=== PATIENT | female | born 1965 | race African-American/Black ===

== ENCOUNTER 2017-09-11 20:12 | Observation (INO) | payer SELFPAY ==
[2017-09-11 17:40] VITALS: O2SAT 98
[~2017-09-11 20:12] MED LIST: ACETAMINOPHEN 325 MG TAB PO PRN; AMLO5TAB2 PO; ASPI-516 CHEW; ATOR40TA16 PO; BENZ100 PO; BIOTCAP PO; BISACODYL 10 MG SUPP RECTAL PRN; CLOP75TA PO; FAMO20TA2 PO; FENO1TAB46 PO; FERR325T18 PO; FISHCAP4 PO; GABA100C4 PO; HYZA100T6 PO; ISOS60TA PO; LACTULOSE SYRUP 20 GM/30 ML CUP PO PRN; LIPI20TA PO; LOSA25TA PO; MAGN250T11 PO; MEDR4PAK PO; METF1000 PO; METF500T PO; METO25TA3 PO; METO50TA PO; NALOXONE HCL 0.4 MG/ML AMP IV PUSH PRN; ONDANSETRON HCL 4 MG/2 ML VIAL IVP PRN; PLAV75TA29 PO; SODIUM CHLORIDE 0.9% FLUSH 10 ML FLUSH IV FLUSH PRN; VENTAER INH
[2017-09-11 20:35] VITALS: O2SAT 98
[2017-09-11] MEDS ORDERED: TEMAZEPAM 15 MG CAP PO PRN (21:00)
[2017-09-11] MEDS ORDERED: MAGNESIUM HYDROXIDE SUSP 30 ML CUP PO PRN (21:00)
[2017-09-11] MEDS ORDERED: SENNOSIDES 8.6 MG TAB PO PRN (21:00)
[2017-09-11 21:15] VITALS: PULSE 87
[2017-09-11 21:31] VITALS: BP 127/62; PULSE 86; RESP 18; TEMP 97.9; O2SAT 96
[2017-09-11] MEDS: SODIUM CHLORIDE 0.9% FLUSH 10 ML FLUSH IV FLUSH SCH (21:59)
[2017-09-11] MEDS: ENOXAPARIN SODIUM 40 MG/0.4 ML SYRINGE SQ SCH (22:00)
[2017-09-11] MEDS: GABAPENTIN 100 MG CAP PO SCH (22:01)
[2017-09-11] MEDS: METOPROLOL TARTRATE 25 MG TAB PO SCH (22:01)
[2017-09-11] MEDS: FAMOTIDINE 20 MG TAB PO SCH (22:01)
[2017-09-11] MEDS: ATORVASTATIN 40 MG TAB PO SCH (22:01)
[2017-09-11] MEDS: DOCUSATE SODIUM 50 MG/SENNA 8.6 MG TAB PO SCH (22:02)
[2017-09-12] VITALS (8 sets, daily range): BP systolic 99–175; BP diastolic 57–90; PULSE 72–88; RESP 18–20; TEMP 97.5–98.9; O2SAT 94–98
[2017-09-12] MEDS: LOSARTAN 50 MG TAB PO SCH (08:42)
[2017-09-12] MEDS: HYDROCHLOROTHIAZIDE 25 MG TAB PO SCH (08:42)
[2017-09-12] MEDS: METOPROLOL TARTRATE 25 MG TAB PO SCH ×2 (08:42→21:03)
[2017-09-12] MEDS: FAMOTIDINE 20 MG TAB PO SCH ×2 (08:42→21:00)
[2017-09-12] MEDS: FERROUS SULFATE 325 MG (65 MG ELEMENTAL IRON) TAB PO SCH (08:43)
[2017-09-12] MEDS: GABAPENTIN 100 MG CAP PO SCH ×2 (08:43→21:03)
[2017-09-12] MEDS: FENOFIBRATE 48 MG TAB PO SCH (08:43)
[2017-09-12] MEDS: CLOPIDOGREL 75 MG TAB PO SCH (08:43)
[2017-09-12] MEDS: SODIUM CHLORIDE 0.9% FLUSH 10 ML FLUSH IV FLUSH SCH ×2 (08:43→21:03)
[2017-09-12] MEDS: ASPIRIN 81 MG CHEW TAB CHEW SCH (08:43)
[2017-09-12] MEDS: amLODIPine BESYLATE 5 MG TAB PO SCH (08:43)
[2017-09-12] MEDS: DOCUSATE SODIUM 50 MG/SENNA 8.6 MG TAB PO SCH ×2 (08:45→21:00)
[2017-09-12 08:47] LABS: AUTOMATED NEUTROPHIL # 6.3 TH/MM3 (1.8-7.7); BASOPHIL # 0.1 TH/MM3 (0-0.2); BASOPHIL % 0.7 % (0.0-2.0); EOSINOPHIL # 0.2 TH/MM3 (0-0.4); EOSINOPHIL % 2.1 % (0.0-4.0); HEMATOCRIT 38.3 % (35.0-46.0); HEMOGLOBIN 12.6 GM/DL (11.6-15.3); LYMPH % 23.7 % (9.0-44.0); LYMPHOCYTE # 2.3 TH/MM3 (1.0-4.8); MEAN CELL VOLUME 86.4 FL (80.0-100.0); MEAN CORPUSCULAR HEMOGLOBIN 28.4 PG (27.0-34.0); MEAN CORPUSCULAR HGB CONC 32.8 % (32.0-36.0); MEAN PLATELET VOLUME 10.1 FL (7.0-11.0); MONO % 7.4 % (0.0-8.0); MONOCYTE # 0.7 TH/MM3 (0-0.9); NEUT % 66.1 % (16.0-70.0); PLATELET COUNT 284 TH/MM3 (150-450); RED BLOOD COUNT 4.43 MIL/MM3 (4.00-5.30); RED CELL DISTRIBUTION WIDTH 15.6 % (11.6-17.2); WHITE BLOOD COUNT 9.6 TH/MM3 (4.0-11.0)
[2017-09-12 08:52] LABS: CALCIUM 8.5 MG/DL (8.5-10.1)
[2017-09-12 08:53] LABS: BICARBONATE 29.1 MEQ/L (21.0-32.0)
[2017-09-12 08:56] LABS: CREATININE 0.88 MG/DL (0.50-1.00)
[2017-09-12] MEDS ORDERED: NON-FORMULARY DRUG (Magnesium Oxide 250 MG) PO SCH (09:00)
--- NOTE | 2017-09-12 11:12 | HHI.HP ---
[facility] Service [facility] ([place], [place])ists Primary Care Physician Non-Staff Admission Diagnosis Hypertension Diagnoses: (1) Hypertension Diagnosis: Principal (2) TIA (transient ischemic attack) Diagnosis: Secondary (3) Hypokalemia Diagnosis: Secondary Chief Complaint: Headache and dizziness Travel History International Travel<30 Days: No Contact w/Intl Traveler <30 Da: No History of Present Illness Written by Leidy Cummings, acting as scribe for Dr. Loving on 09/12/17 at 11:08. Ms. Parekh is a 52-year-old female patient with a known medical history of multiple TIAs, DM, CAD and HTN who presented to the ED with complaints of frontal headache and dizziness. Patient states she came to the ED initially for similar complaints and at the time was hypertensive, was given antihypertensives and CT scan which was negative and sent home. Patient states that she felt somewhat improved with the treatment but has continued as well as a worsening headache yesterday morning wish associated blurry vision. Patient states that her symptoms persisted thinking maybe she was coming down with a sickness from contact with sick family members. Does admit to taking OTC Cepacol for cough.She went to her PCP was diagnosed with bronchitis and given steroids, inhaler and antibiotics. While at the office she developed a worsening headache and her BP was in the 225's which led to her presentation. Patient states that her BP is always controlled at home. Does admit to multiple previous TIAs and CVA 5 years ago. 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 At the time of assessment, headache has resolved. Denies any pain or discomfort. Denies any fever, chills, headache, shortness of breath, abdominal pain, nausea, vomiting, diarrhea or dysuria. Has not seen a neurologist for many years, last one she saw was Dr. Johnson. Review of Systems Constitutional: DENIES: Fever, Chills Eyes: COMPLAINS OF: Blurred vision, DENIES: Diplopia, Eye pain Respiratory: DENIES: Cough, Sputum production, Shortness of breath Cardiovascular: DENIES: Chest pain Gastrointestinal: DENIES: Abdominal pain, Nausea, Vomiting Musculoskeletal: DENIES: Joint pain Hematologic/lymphatic: DENIES: Bruising Neurologic: COMPLAINS OF: Headache Psychiatric: DENIES: Anxiety Except as stated in HPI: all other systems reviewed are Neg Past Family Social History Past Medical History History of multiple TIAs, DM, CAD, hyperlipidemia and HTN Past Surgical History Tubal ligation. Reported Medications Active Reported Fish Oil + D3 (Fish Oil-Cholecalciferol) 1,200-1,000 Mg-Unit Cap 1 Cap PO DAILY Ferrous Sulfate 325 Mg (65 Mg Iron) Tablet 325 Mg PO DAILY Biotin 5 Mg Cap 5 Mg PO DAILY Magnesium Oxide 250 Mg Tab 250 Mg PO DAILY Fenofibrate 40 Mg Tab 40 Mg PO DAILY Plavix (Clopidogrel Bisulfate) 75 Mg Tab 75 Mg PO DAILY Aspirin 81 Mg Chew 81 Mg CHEW DAILY Famotidine 20 Mg Tab 20 Mg PO BID Metformin (Metformin HCl) 1,000 Mg Tab 1,000 Mg PO BIDPC Metoprolol Tartrate 25 Mg Tab 25 Mg PO BID Amlodipine (Amlodipine Besylate) 5 Mg Tab 5 Mg PO DAILY Hyzaar (Losartan-Hydrochlorothiazide) 100-25 Mg Tab 1 Tab PO DAILY Atorvastatin (Atorvastatin Calcium) 40 Mg Tab 40 Mg PO HS Gabapentin 100 Mg Cap 100 Mg PO BID Allergies: Coded Allergies: No Known Allergies (Verified Adverse Reaction, Unknown, 09/11/17) Active Ordered Medications Current Medications Medications (Trade) Dose Ordered Sig/Danielle Route Start Time Stop Time Status Last Admin (NS Flush) 2 ml UNSCH PRN IV FLUSH 09/11/17 17:45 (NS Flush) 2 ml BID IV FLUSH 09/11/17 21:00 09/12/17 08:43 (Tylenol) 650 mg Q4HR PRN PO 09/11/17 20:00 (Zofran Inj) 4 mg Q6HR PRN IVP 09/11/17 18:00 (Restoril) 15 mg HS PRN PO 09/11/17 21:00 (Lovenox Inj) 40 mg Q24H SQ 09/11/17 21:00 09/11/17 22:00 (Narcan Inj) 0.4 mg UNSCH PRN IV PUSH 09/11/17 17:45 (Angela-Colace) 1 tab BID PO 09/11/17 21:00 09/11/17 22:02 (Milk Of Magnesia Liq) 30 ml Q12HR PRN PO 09/11/17 21:00 (Senokot) 17.2 mg Q12HR PRN PO 09/11/17 21:00 (Dulcolax Supp) 10 mg DAILY PRN RECTAL 09/11/17 18:00 (Lactulose Liq) 30 ml DAILY PRN PO 09/11/17 18:00 (Norvasc) 5 mg DAILY PO 09/12/17 09:00 09/12/17 08:43 (Aspirin Chew) 81 mg DAILY CHEW 09/12/17 09:00 09/12/17 08:43 (Lipitor) 40 mg HS PO 09/11/17 21:00 09/11/17 22:01 (Plavix) 75 mg DAILY PO 09/12/17 09:00 09/12/17 08:43 (Pepcid) 20 mg BID PO 09/11/17 21:00 09/12/17 08:42 (Ferrous Sulfate) 325 mg DAILY PO 09/12/17 09:00 09/12/17 08:43 (Neurontin) 100 mg BID PO 09/11/17 21:00 09/12/17 08:43 (Lopressor) 25 mg BID PO 09/11/17 21:00 09/12/17 08:42 (Tricor) 48 mg DAILY PO 09/12/17 09:00 09/12/17 08:43 (Cozaar) 100 mg DAILY PO 09/12/17 09:00 09/12/17 08:42 (Hydrodiuril) 25 mg DAILY PO 09/12/17 09:00 09/12/17 08:42 Family History Family medical history significant for hypertension and DM. Social History Admits to smoking 1 ppd for 38 years. Denies any alcohol use. Denies any illicit drug use, does admit to history of cocaine use. Last cocaine use 3 years ago. Physical Exam Vital Signs Vital Signs Date Time Temp Pulse Resp B/P (MAP) Pulse Ox O2 Delivery O2 Flow Rate FiO2 09/12/17 08:02 77 09/12/17 08:00 98.0 78 18 175/90 (118) 96 09/12/17 05:00 98.8 74 18 132/66 (88) 96 09/12/17 00:16 98.9 83 20 99/57 (71) 94 09/11/17 21:31 97.9 86 18 127/62 (83) 96 09/11/17 21:15 87 09/11/17 20:35 98 21 09/11/17 17:40 98 21 Physical Exam GENERAL: This is a well-nourished, well-developed female patient, in no apparent distress. SKIN: No rashes, ecchymoses or lesions. Warm and dry. HEAD: Atraumatic. Normocephalic. EYES: Pupils equal round and reactive. Extraocular motions intact. No scleral icterus. No injection or drainage. ENT: Nose without bleeding, purulent drainage or septal hematoma. Throat without erythema, tonsillar hypertrophy or exudate. Uvula midline. Airway patent. NECK: Trachea midline. No JVD. Supple. CARDIOVASCULAR: Regular rate and rhythm without murmurs, gallops, or rubs. RESPIRATORY: Clear to auscultation. Breath sounds equal bilaterally. No wheezes , rales, or rhonchi. GASTROINTESTINAL: Abdomen soft, non-tender, nondistended. No guarding. MUSCULOSKELETAL: Extremities without clubbing, cyanosis, or edema. No joint tenderness, effusion, or edema noted. NEUROLOGICAL: Awake and alert. Cranial nerves II through XII intact. Normal speech. Right lower extremity dorsal flexion weak, right lower extremity 4/5 in muscle strength. Laboratory Laboratory Tests Test 09/12/17 07:24 White Blood Count 9.6 Red Blood Count 4.43 Hemoglobin 12.6 Hematocrit 38.3 Mean Corpuscular Volume 86.4 Mean Corpuscular Hemoglobin 28.4 Mean Corpuscular Hemoglobin Concent 32.8 Red Cell Distribution Width 15.6 Platelet Count 284 Mean Platelet Volume 10.1 Neutrophils (%) (Auto) 66.1 Lymphocytes (%) (Auto) 23.7 Monocytes (%) (Auto) 7.4 Eosinophils (%) (Auto) 2.1 Basophils (%) (Auto) 0.7 Neutrophils # (Auto) 6.3 Lymphocytes # (Auto) 2.3 Monocytes # (Auto) 0.7 Eosinophils # (Auto) 0.2 Basophils # (Auto) 0.1 CBC Comment DIFF FINAL Differential Comment Blood Urea Nitrogen 23 Creatinine 0.88 Random Glucose 85 Calcium Level 8.5 Sodium Level 139 Potassium Level 3.3 Chloride Level 104 Carbon Dioxide Level 29.1 Anion Gap 6 Estimat Glomerular Filtration Rate 82 Result Diagram: 09/12/17 0724 09/12/17 0724 Imaging Last Impressions Brain MRI 09/12/17 0000 Signed Impressions: Service Date/Time: Tuesday, September 12, 2017 10:58 - CONCLUSION: 1. Increased signal throughout the cerebral white matter secondary to demyelination. This could be secondary to underlying conditions such as multiple sclerosis or small vessel ischemic change. 2. Subtle small area of mild increased signal seen on the diffusion-weighted images of the right cerebral peduncle raising the possibility of an acute lacunar infarct. Cruz Herrmann MD Septic Shock Reassessment Septic shock perfusion: reassessment completed Caprini VTE Risk Assessment Caprini VTE Risk Assessment: No/Low Risk (score <= 1) Caprini Risk Assessment Model Point Value = 1 Point Value = 2 Point Value = 3 Point Value = 5 Age 41-60 Minor surgery BMI > 25 kg/m2 Swollen legs Varicose veins or History of unexplained or recurrent spontaneous Oral contraceptives or hormone replacement Sepsis (< 1 month) Serious lung disease, including pneumonia (< 1 month) Abnormal pulmonary function Acute myocardial infarction Congestive heart failure (< 1 month) History of inflammatory bowel disease Medical patient at bed rest Age 61-74 Arthroscopic surgery Major open surgery (> 45 min) Laparoscopic surgery (> 45 min) Malignancy Confined to bed (> 72 hours) Immobilizing plaster cast Central venous access Age >= 75 History of VTE Family history of VTE Factor V Leiden Prothrombin [id number] Lupus anticoagulant Anticardiolipin antibodies Elevated serum homocysteine Heparin-induced thrombocytopenia Other congenital or acquired thrombophilia Stroke (< 1 month) Elective arthroplasty Hip, pelvis, or leg fracture Acute spinal cord injury (< 1 month) Prophylaxis Regimen Total Risk Factor Score Risk Level Prophylaxis Regimen 0-1 Low Early ambulation 2 Moderate Order ONE of the following: *Sequential Compression Device (SCD) *Heparin 5000 units SQ BID 3-4 Higher Order ONE of the following medications: *Heparin 5000 units SQ TID *Enoxaparin/Lovenox 40 mg SQ daily (WT < 150 kg, CrCl > 30 mL/min) *Enoxaparin/Lovenox 30 mg SQ daily (WT < 150 kg, CrCl > 10-29 mL/min) *Enoxaparin/Lovenox 30 mg SQ BID (WT < 150 kg, CrCl > 30 mL/min) AND/OR *Sequential Compression Device (SCD) 5 or more Highest Order ONE of the following medications: *Heparin 5000 units SQ TID (Preferred with Epidurals) *Enoxaparin/Lovenox 40 mg SQ daily (WT < 150 kg, CrCl > 30 mL/min) *Enoxaparin/Lovenox 30 mg SQ daily (WT < 150 kg, CrCl > 10-29 mL/min) *Enoxaparin/Lovenox 30 mg SQ BID (WT < 150 kg, CrCl > 30 mL/min) AND *Sequential Compression Device (SCD) Assessment and Plan Problem List: (1) TIA (transient ischemic attack) ICD Code: G45.9 - Transient cerebral ischemic attack, unspecified (2) Hypertension ICD Code: I10 - Essential (primary) hypertension (3) Hypokalemia ICD Code: E87.6 - Hypokalemia Assessment and Plan Ms. Parekh is a 52-year-old female patient with a known medical history of multiple TIAs, DM, CAD and HTN who presented to the ED with complaints of headache and dizziness. Rule out TIA vs CVA with presence of frontal headache, dizziness History of multiple TIAs and CVA Brain MRI reviewed showing increased signal throughout the cerebral white matter secondary to demyelination. This could be secondary to underlying conditions such as multiple sclerosis or small vessel ischemic change. Subtle small area of mild increased signal seen on the diffusion-weighted images of the right cerebral peduncle raising the possibility of an acute lacunar infarct. Will consult neurology, appreciate further recommendations and input. Continue home Plavix and Aspirin. 2-D ECHO ordered and pending. Follow. Carotid ultrasound ordered and pending. Continue cardiac telemetry, monitor for any arrhythmias. Supplemental O2 to keep sats >92%. PT requested for evaluation and treatment, appreciate recommendations. Continue neuro checks. Hypertension, acute on chronic: Monitor BP trends closely. Allow for some permissive hypertension. Will restart home medications, Amlodipine, HCTZ and Losartan. Continue metoprolol. Hypokalemia: K 3.3 on presentation. Repletion ordered, follow BMP. Iron deficiency anemia, chronic: Continue supplemental iron. Hyperlipidemia, chronic: Continue home statin and Tricor. GI prophylaxis/GERD: Pepcid. DVT prophylaxis: SCDs. Lovenox. This note was transcribed by KYLIE Paulson . I, Dr. Sully Loving personally performed the history, physical exam, and medical decision making; and confirmed the accuracy of the information in the transcribed note. Authenticated by Dr. Sully Loving on 09/12/17 at 11:08. Leidy Cummings Sep 12, 2017 11:12 Sully Loving MD Sep 12, 2017 13:44
--- NOTE | 2017-09-12 11:41 | RADRPT ---
EXAM DATE/TIME: 09/12/2017 10:58 [facility] COMPARISON: CT BRAIN W/O CONTRAST, September 11, 2017, 3:59. INDICATIONS : Cephalgia. MEDICAL HISTORY : Cardiovascular disease SURGICAL HISTORY : Tubal ligation. ENCOUNTER: Initial ACUITY: 1 day PAIN SCORE: 4/10 LOCATION: cranial TECHNIQUE: Multiplanar, multisequence MRI of the brain was performed without contrast. FINDINGS: CEREBRUM: The ventricles are normal for age. No evidence of midline shift, mass lesion, hemorrhage or acute in farction. No extraaxial fluid collections are seen. The pituitary gland and suprasellar cistern are normal in configuration. WHITE MATTER: There is increased signal seen throughout the cerebral white matter. POSTERIOR FOSSA: The cerebellum and brainstem are intact. The 4th ventricle is midline. The cerebellopontine angle is unremarkable. The cerebellar tonsils are normal in position. DIFFUSION IMAGING: There is a small 6 mm area of mild increased signal seen at the right cerebral peduncle region which could be a subtle area of lacunar infarction. EXTRACRANIAL: The visualized portions of the orbits and paranasal sinuses are unremarkable. CONCLUSION: 1. Increased signal throughout the cerebral white matter secondary to demyelination. This could be se condary to underlying conditions such as multiple sclerosis or small vessel ischemic change. 2. Subtle small area of mild increased signal seen on the diffusion-weighted images of the right cere bral peduncle raising the possibility of an acute lacunar infarct. Cruz Herrmann MD on September 12, 2017 at 11:34 Board Certified Radiologist. This report was verified electronically.
[2017-09-12] MEDS ORDERED: POTASSIUM CHLORIDE 10 MEQ CONTROLLED RELEASE TAB PO ONE (12:15)
--- NOTE | 2017-09-12 16:04 | RADRPT ---
EXAM DATE/TIME: 09/12/2017 19:59 [facility] COMPARISON: MRI BRAIN W/O CONTRAST, September 12, 2017, 10:58. INDICATIONS : Transient ischemic attack. MEDICAL HISTORY : Myocardial infarction. Hypertension. Gastroesophageal reflux disease. Transient ischemic attack. CAD. SURGICAL HISTORY : Tubal ligation. ENCOUNTER: Initial ACUITY: 1 day PAIN SCORE: 09/23 LOCATION: Bilateral neck PEAK SYSTOLIC VELOCITIES (cm/sec): ICA/CCA RATIO: Right: 1.5 Left: 0.8 ICA: Right: 127 Left: 86 CCA: Right: 83 Left: 114 ECA: Right: 490 Left: 160 VERTEBRAL: Right: 72 antegrade Left: 73 antegrade Elevated flow velocities and ICA/CCA ratios have been found to correlate with increased degrees of vessel stenosis, calculated as percentage of diameter relative to a normal segment of distal ICA/CCA (Society of Radiologists in Ultrasound Consensus Statement, Radiology 2003, 229: 340-346) FINDINGS: The left carotid artery is basically occluded for most part and was without any velocity measurements in the very proximal portion of the and measurement as above. There is atherosclerotic plaquing bila terally at the origin of both internal carotid arteries. There is antegrade flow within bilateral jessica tebral arteries. CONCLUSION: The left ICA is occluded for the most part and per report of the patient's prior CT angiogram of the carotids from 06/07/2011 it was present on that study and therefore is chronic. Omer Carvajal MD on September 12, 2017 at 15:59 Board Certified Radiologist. This report was verified electronically.
[2017-09-12] MEDS: ATORVASTATIN 40 MG TAB PO SCH (21:03)
[2017-09-12] MEDS: ENOXAPARIN SODIUM 40 MG/0.4 ML SYRINGE SQ SCH (21:05)
[2017-09-13 00:38] VITALS: BP 118/60; PULSE 72; RESP 16; TEMP 98; O2SAT 95
[2017-09-13] MEDS: NEOMYCIN/POLYMYXIN/BACITRACIN OINT 15 GM TUBE TOPICAL SCH ×2 (01:06→09:00)
[2017-09-13 04:28] VITALS: BP 122/61; PULSE 69; RESP 18; TEMP 97.5; O2SAT 94
[2017-09-13 08:00] VITALS: BP 122/79; PULSE 76; RESP 18; TEMP 96.3; O2SAT 98
[2017-09-13] MEDS: FENOFIBRATE 48 MG TAB PO SCH (09:00)
[2017-09-13] MEDS: SODIUM CHLORIDE 0.9% FLUSH 10 ML FLUSH IV FLUSH SCH (09:00)
[2017-09-13] MEDS: GABAPENTIN 100 MG CAP PO SCH (09:00)
[2017-09-13] MEDS: DOCUSATE SODIUM 50 MG/SENNA 8.6 MG TAB PO SCH (09:00)
[2017-09-13] MEDS: FERROUS SULFATE 325 MG (65 MG ELEMENTAL IRON) TAB PO SCH ×2 (09:00→09:40)
[2017-09-13] MEDS: HYDROCHLOROTHIAZIDE 25 MG TAB PO SCH (09:00)
[2017-09-13] MEDS: FAMOTIDINE 20 MG TAB PO SCH ×2 (09:00→09:40)
[2017-09-13] MEDS: ASPIRIN 81 MG CHEW TAB CHEW SCH (09:00)
[2017-09-13] MEDS: CLOPIDOGREL 75 MG TAB PO SCH (09:39)
[2017-09-13] MEDS: amLODIPine BESYLATE 5 MG TAB PO SCH (09:39)
[2017-09-13] MEDS: METOPROLOL TARTRATE 25 MG TAB PO SCH (09:40)
[2017-09-13] MEDS: LOSARTAN 50 MG TAB PO SCH (09:41)
--- NOTE | 2017-09-13 09:41 | HHI.PR ---
Subjective Remarks Feels much better. No motor deficit. No n/v/d/c. Denies chest pain or sob. No n/ v/d/c. Objective Vitals Vital Signs Date Time Temp Pulse Resp B/P (MAP) Pulse Ox O2 Delivery O2 Flow Rate FiO2 09/13/17 08:00 96.3 76 18 122/79 (93) 98 09/13/17 04:28 97.5 69 18 122/61 (81) 94 09/13/17 00:38 98.0 72 16 118/60 (79) 95 09/12/17 20:42 97.5 88 18 133/80 (97) 97 09/12/17 20:42 97 21 09/12/17 20:00 78 09/12/17 16:00 98.4 72 20 145/88 (107) 96 09/12/17 12:00 98.4 72 18 162/76 (104) 98 I/O 09/12/17 09/12/17 09/12/17 09/13/17 09/13/17 09/13/17 07:00 15:00 23:00 07:00 15:00 23:00 Intake Total 300 ml Balance 300 ml Intake Oral 300 ml # Voids 1 1 4 # Bowel Movements 0 Result Diagram: 09/12/1724 09/12/17 0724 Imaging Last Impressions Carotid Artery Ultrasound 09/12/17 0000 Signed Impressions: Service Date/Time: Tuesday, September 12, 2017 19:59 - CONCLUSION: The left ICA is occluded for the most part and per report of the patient's prior CT angiogram of the carotids from 06/07/2011 it was present on that study and therefore is chronic. Omer Carvajal MD Brain MRI 09/12/17 0000 Signed Impressions: Service Date/Time: Tuesday, September 12, 2017 10:58 - CONCLUSION: 1. Increased signal throughout the cerebral white matter secondary to demyelination. This could be secondary to underlying conditions such as multiple sclerosis or small vessel ischemic change. 2. Subtle small area of mild increased signal seen on the diffusion-weighted images of the right cerebral peduncle raising the possibility of an acute lacunar infarct. Cruz Herrmann MD Objective Remarks GENERAL: This is a well-nourished, well-developed female patient, in no apparent distress. CARDIOVASCULAR: Regular rate and rhythm without murmurs, gallops, or rubs. RESPIRATORY: Clear to auscultation. Breath sounds equal bilaterally. No wheezes , rales, or rhonchi. GASTROINTESTINAL: Abdomen soft, non-tender, nondistended. No guarding. MUSCULOSKELETAL: Extremities without clubbing, cyanosis, or edema. No joint tenderness, effusion, or edema noted. NEUROLOGICAL: Awake and alert. Cranial nerves II through XII intact. Normal speech. Right lower extremity dorsal flexion weak, right lower extremity 4/5 in muscle strength. A/P Problem List: (1) Hypertension ICD Code: I10 - Essential (primary) hypertension (2) TIA (transient ischemic attack) ICD Code: G45.9 - Transient cerebral ischemic attack, unspecified (3) Hypokalemia ICD Code: E87.6 - Hypokalemia Assessment and Plan Ms. Parekh is a 52-year-old female patient with a known medical history of multiple TIAs, DM, CAD and HTN who presented to the ED with complaints of headache and dizziness. Rule out TIA vs CVA with presence of frontal headache, dizziness History of multiple TIAs and CVA Brain MRI reviewed showing increased signal throughout the cerebral white matter secondary to demyelination. This could be secondary to underlying conditions such as multiple sclerosis or small vessel ischemic change. Subtle small area of mild increased signal seen on the diffusion-weighted images of the right cerebral peduncle raising the possibility of an acute lacunar infarct. Will consult neurology, appreciate further recommendations and input. Continue home Plavix and Aspirin. 2-D ECHO ordered and pending. Follow. Carotid ultrasound ordered and pending. Continue cardiac telemetry, monitor for any arrhythmias. Supplemental O2 to keep sats >92%. PT requested for evaluation and treatment, appreciate recommendations. Continue neuro checks. Hypertension, acute on chronic: Monitor BP trends closely. Allow for some permissive hypertension. Will restart home medications, Amlodipine, HCTZ and Losartan. Continue metoprolol. Hypokalemia: K 3.3 on presentation. Repletion ordered, follow BMP. Iron deficiency anemia, chronic: Continue supplemental iron. Hyperlipidemia, chronic: Continue home statin and Tricor. GI prophylaxis/GERD: Pepcid. DVT prophylaxis: SCDs. Lovenox. dc today cleared by neuro to follow up as op with neuro and pcp Discharge Planning DC home in stable condition to follow up as OP with PCP and consultants. Diet: Healthy heart diet Activity ad omar as tolerated Meds per med reconciliations Sully Loving MD Sep 13, 2017 09:41
[2017-09-13 10:10] LABS: BICARBONATE 29.2 MEQ/L (21.0-32.0); CALCIUM 9.5 MG/DL (8.5-10.1); CREATININE 0.85 MG/DL (0.50-1.00)
[2017-09-13] MEDS ORDERED: GADODIAMIDE PF 287 MG/ML 20 ML VIAL (for RAD MRI) IVCONTRAST ONE (11:33)
[2017-09-13] MEDS ORDERED: TRIPOIN TOPICAL (11:52)
--- NOTE | 2017-09-13 11:52 | HHI.DCPOC ---
Discharge Care Plan Goals to Promote Your Health * To prevent worsening of your condition and complications * To maintain your health at the optimal level Directions to Meet Your Goals Take your medications as prescribed Follow your dietary instruction Follow activity as directed Keep your appointments as scheduled Take your immunizations and boosters as scheduled If your symptoms worsen call your PCP, if no PCP go to Urgent Care Center or Emergency Room Smoking is Dangerous to Your Health. Avoid second hand smoke Call the 24-hour hour crisis hotline for domestic abuse at Sully Loving MD Sep 13, 2017 11:52
--- NOTE | 2017-09-13 12:15 | RADRPT ---
EXAM DATE/TIME: 09/13/2017 11:11 [facility] COMPARISON: MRI BRAIN W & W/O CONTRAST, September 13, 2017, 11:11. MRI BRAIN W/O CONTRAST, September 12, 2017, 10 :58. CT BRAIN W/O CONTRAST, September 11, 2017, 3:59. INDICATIONS : Cephalgia. MEDICAL HISTORY : Cardiovascular disease SURGICAL HISTORY : Coronary artery stent. ENCOUNTER: Initial ACUITY: 2 day PAIN SCORE: 4/10 LOCATION: cranial Please note a normal MRA of the brain does not entirely exclude the possibility of a small aneurysm, nor the possibility of distal intracranial vessel disease. TECHNIQUE: 3D time of flight MRA was performed. Source images, multiplanar STS MIP, and 3D volume MIP reconstru ctions were reviewed. FINDINGS: There is occlusion of the left internal carotid artery. The right internal carotid artery is patent. There is an irregularity seen in the right cavernous region. The right internal carotid arteries norm al bifurcations into the anterior and middle cerebral arteries. The left anterior cerebral and middle cerebral arteries fill through collaterals through a patent anterior communicating artery. The verte bral arteries and basilar arteries are patent. The basilar artery seems normally bifurcated to the po sterior cerebral arteries. The distal flow appears symmetric. An aneurysm is not seen. CONCLUSION: Occlusion of the left internal artery with the left circulation filling through collaterals mainly th rough an anterior communicating artery. Cruz Herrmann MD on September 13, 2017 at 12:10 Board Certified Radiologist. This report was verified electronically.
--- NOTE | 2017-09-13 12:36 | MB ---
cc: BRADY SMYTH M.D. DATE OF CONSULTATION: 09/13/2017 DATE OF : 1965, 52-year-old woman. REASON FOR CONSULTATION: Possible stroke. HISTORY OF PRESENT ILLNESS: This is a 52 year-old patient who comes in with a history of multiple TIA/strokes, diabetes, prediabetic, heart disease, hypertension, who came in with headache, dizziness, was found to have accelerated hypertension. She had a CT, initially sent home, but then again she had worsening headache, blurry vision and came back. Blood pressure was elevated again in the 225 range systolic. She is feeling better now. She had an MRI that shows possible lacuna right cerebral peduncle but excessive white matter disease. Concerning is that she may have MS, has not seen a neurologist in years, I believe it was Dr. Cintron in the past. She states she has never had a spinal tap. She never had her eyes evaluated by director of informatics either. PAST MEDICAL HISTORY: As stated. PAST SURGICAL HISTORY Tubal ligation. HOME MEDICATIONS: 1. Fish oil. 2. Iron. 3. Biotin. 4. Magnesium. 5. Fenofibrate. 6. Plavix. 7. Baby aspirin 8. Famotidine. 9. Metformin. 10. Metoprolol. 11. Amlodipine 12. Hyzaar. 13. Atorvastatin. 14. Gabapentin. ALLERGIES: None reported. PHYSICAL EXAMINATION: VITAL SIGNS: Temperature 96.3, pulse 76, respiratory rate 18, blood pressure 122/79, sating at 98%, room ia. Neck: Supple. There are no bruits. Heart: Regular. She is awake, alert. She is oriented, fluent. Pupils reactive. Visual varela full. Face symmetrical. Tongue midline. Motor: She does not exhibit any drift or leg lag. Cerebellar testing is normal. Trace DTRs. She has two rounded wounds over her ankle region. Gait is intact. LABORATORY DATA: Labs reviewed. Hemoglobin A1c has not been done on this admission but in 2010, it was 6.3 and 6.4. She also has hypercoagulable panel at that point in time. It was unremarkable. IMAGING STUDIES: MRI brain shows increased signal throughout the white matter possibly due to demyelination such as MS or small vessel ischemic changes. There is a small area subtle, but increased signal on DWI, right cerebral peduncle possible new lacune. Her last MRA on 2010 was unremarkable. Carotid ultrasound shows the left ICA occlusion. There is no change from 2011. MRI in March of 2011 showed again she had lateral white matter changes. IMPRESSION The patient is a 52-year-old woman with uncontrolled hypertension, history of stroke, possible MS. Recommend at this point getting an MRI while she is here, of the brain with and without contrast for enhancement. Will check the [place] [facility] [place] again. Would recommend as an outpatient she be set up with radiology, fluoroscopy and have a spinal tap for WBC, RBC, glucose, protein, AFB, VDRL, but also oligoclonal bands and myelin basic protein to determine if she truly has MS. She needs to follow up with neurology as outpatient. Further treatment options. Continue her on antiplatelets at this point in time. Blood pressure control. Lipid control. She needs to stop smoking. After MRI certainly she can be discharged home to follow up with her primary care next week and with neurology as soon as possible. MD GUERITA Lovell/ANN /10:44 AM /12:08 PM
--- NOTE | 2017-09-13 12:40 | RADRPT ---
EXAM DATE/TIME: 09/13/2017 11:11 [facility] COMPARISON: MRI BRAIN W/O CONTRAST, September 12, 2017, 10:58. INDICATIONS : Cephalgia. Multiple sclerosis. CONTRAST: 20 cc Omniscan (gadodiamide) IV MEDICAL HISTORY : Cardiovascular disease SURGICAL HISTORY : Coronary artery stent. ENCOUNTER: Initial ACUITY: 2 day PAIN SCORE: 4/10 LOCATION: cranial TECHNIQUE: Multiplanar, multisequence MRI of the brain was performed both prior to and following the administrat ion of paramagnetic contrast. FINDINGS: CEREBRUM: The ventricles are normal for age. No evidence of midline shift, mass lesion, hemorrhage or acute in farction. No extraaxial fluid collections are seen. The pituitary gland and suprasellar cistern are normal in configuration. There is occlusion of the left internal carotid artery. WHITE MATTER: There are prompt focal and confluent areas of increased signal seen throughout the cerebral white mat ter. POSTERIOR FOSSA: The cerebellum and brainstem are intact. The 4th ventricle is midline. The cerebellopontine angle is unremarkable. The cerebellar tonsils are normal in position. DIFFUSION IMAGING: No focal areas of restricted diffusion are seen. No evidence of acute infarction. On the prior exam, there was a questionable area of increased signal at the right cerebral peduncle. This area appears normal on today's examination. EXTRACRANIAL: The visualized portions of the orbits and paranasal sinuses are unremarkable. POST-CONTRAST: No abnormal areas of parenchymal or dural enhancement. No evidence of blood-brain barrier breakdown. CONCLUSION: 1. Focal and confluent areas of increased signal seen throughout the cerebral white matter demyelinat ion. This can be seen with patient's history of multiple sclerosis. Small vessel ischemic change coul d have a similar appearance. 2. Occlusion of the left internal carotid artery. No acute infarct is seen. Cruz Herrmann MD on September 13, 2017 at 12:34 Board Certified Radiologist. This report was verified electronically.
--- NOTE | 2017-09-13 13:47 | ECHRPT ---
Indication: CVA/TIA CONCLUSIONS The left ventricular systolic function is normal with an estimated ejection fraction in the range of 60-65%. Moderate concentric left ventricular hypertrophy. Doppler parameters are consistent with impaired left ventricular relaxtion (grade 1 diastolic dysfun ction). Trace mitral valve regurgitation. There is trace tricuspid valve regurgitation. BP: / HR: Rhythm: MEASUREMENTS (Male / Female) Normal Values Technical Quality:Good 2D ECHO LV Diastolic Diameter PLAX 4.1 cm 4.2 - 5.9 / 3.9 - 5.3 cm LV Systolic Diameter PLAX 3.0 cm IVS Diastolic Thickness 1.7 cm 0.6 - 1.0 / 0.6 - 0.9 cm LVPW Diastolic Thickness 0.8 cm 0.6 - 1.0 / 0.6 - 0.9 cm LV Relative Wall Thickness 0.6 RV Internal Dim ED PLAX 2.1 cm LA Systolic Diameter LX 3.6 cm 3.0 - 4.0 / 2.7 - 3.8 cm M-MODE Aortic Root Diameter MM 2.8 cm AV Cusp Separation MM 2.0 cm DOPPLER Mitral E Point Velocity 55.3 cm/s Mitral A Point Velocity 69.1 cm/s Mitral E to A Ratio 0.8 TR Peak Velocity 228.0 cm/s TR Peak Gradient 20.8 mmHg FINDINGS LEFT VENTRICLE Normal left ventricular size. Moderate concentric left ventricular hypertrophy. The left ventricular systolic function is normal with an estimated ejection fraction in the range of 60-65%. Doppler parameters are consistent with impaired left ventricular relaxtion (grade 1 diastolic dysfun ction). RIGHT VENTRICLE Normal right ventricular size and systolic function. LEFT ATRIUM The left atrial size is normal. RIGHT ATRIUM The right atrial size is normal. ATRIAL SEPTUM Normal atrial septal thickness without atrial level shunting by limited color doppler interrogation. AORTA The aortic root and proximal ascending aorta are normal in size on limited imaging. MITRAL VALVE Structurally normal mitral valve. Trace mitral valve regurgitation. No mitral valve stenosis. AORTIC VALVE Trileaflet aortic valve. No aortic valve stenosis or regurgitation. TRICUSPID VALVE Structurally normal tricuspid valve. No tricuspid valve stenosis. There is trace tricuspid valve regurgitation. PULMONARY VALVE The pulmonary valve is not well visualized. VESSELS The inferior vena cava is normal in size. PERICARDIUM No pericardial effusion. Kory Wiley DO (Electronically Signed) Final Date:13 September 2017 13:46
== END 2017-09-13 12:36 | disposition home or self-care (01) ==
LOC: PHEDDLT 20:12 → PH3B 20:13
PROVIDERS: ADMIT Hospitalist; ATTEND Hospitalist
DX: I10 Essential (primary) hypertension (principal); G45.9 Transient cerebral ischemic attack, unspecified; E87.6 Hypokalemia; E78.5 Hyperlipidemia, unspecified; E11.9 Type 2 diabetes mellitus without complications; D50.9 Iron deficiency anemia, unspecified; I25.10 Atherosclerotic heart disease of native coronary artery without angina pectoris; J40 Bronchitis, not specified as acute or chronic; K21.9 Gastro-esophageal reflux disease without esophagitis; Z86.73 Personal history of transient ischemic attack (TIA), and cerebral infarction without residual deficits; Z95.5 Presence of coronary angioplasty implant and graft; Z87.891 Personal history of nicotine dependence; Z79.84 Long term (current) use of oral hypoglycemic drugs
CPT/HCPCS: 70544; 70551; 70553; 80048; 85025; 93306; 93880; 96372; 97162; A9579; G0378; G8987; G8988; J1200; J1650; J1885; J2765; J7030